=== PATIENT | female | born 1990 | race Caucasian/White ===

== ENCOUNTER 2016-11-30 13:11 | Emergency (ER) | payer OTHER, BC ==
[2016-11-30] MEDS ORDERED: KETOROLAC 30 MG/ML VIAL (J1885) As Ordered ONE (14:54)
--- NOTE | 2016-11-30 15:42 | REP ---
CT ABDOMEN: HISTORY: Right flank pain. No prior CTs for comparison. TECHNIQUE: Stone protocol without contrast utilized. The lungs bases are clear. Limited evaluation of the solid intraabdominal organs and gallbladder show no gross abnormalities. Limited evaluation of the pancreas and adrenal glands show no abnormalities. There is no nephroureterolithiasis, hydronephrosis or hydroureter. There are no urinary bladder calcifications. Limited evaluation of the abdominal aorta and paraaortic regions show no gross abnormalities. The bowel loops the mesenteries are unremarkable. There is a trace amount of free pelvic fluid which is probably physiologic. There is no free fluid in the abdomen. There is no free air in the abdomen or pelvis. There is no evidence of an intraabdominal or intrapelvic mass or adenopathy. Bone window technique throughout the examination shows the osseous structures to be within normal limits. IMPRESSION: CT findings are within normal limits. There are some calcified lymph nodes in the left groin, which are nonspecific. Signed by Felipe Fuentes DO 11/30/2016 04:40 P
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
--- NOTE | 2016-11-30 16:01 | EDDOCDS ---
Physician Documentation [facility] Name: Alix Castro Age: 26 yrs Sex: Female : 1990 Arrival Date: 11/30/2016 Time: 13:11 Bed PR Private MD: Other - Complete Info On Cds Disposition: 11/30/16 15:51 Discharged to Home/Self Care. Impression: Low back pain. - Condition is Stable. - Discharge Instructions: Flank Pain, [id number]. - Prescriptions for Diclofenac Sodium 75 mg Oral Tablet, Delayed Release (E.C.) - take 1 tablet by ORAL route 2 times per day; 30 tablet. Robaxin- 750 750 mg Oral Tablet - take 1 tablet by ORAL route every 6 hours As needed; 40 tablet. - Medication Reconciliation, Local Pharmacy Hours form. - Follow up: Orthopaedics, [facility]; When: Call to arrange an appointment; Reason: Further diagnostic work-up, Recheck today's complaints, Continuance of care. - Problem is new. - Symptoms have improved. Historical: - Allergies: no known allergies; - Home Meds: 1. control daily 2. Aleve 220 mg Oral tab 2 tab as needed (Last dose: 11/30/2016 09:00) - PMHx: Seasonal Allergies; - PSHx: nasal fx repair; plate in right ring finger; - Immunization history: Last tetanus immunization: unknown. - Social history: Smoking status: Patient states was never smoker of tobacco. No barriers to communication noted, The patient speaks fluent Stat[place], Speaks appropriately for age. - Family history: Not pertinent. - Last oral intake was: entering ED. - : The pt / caregiver states he / she is not on anticoagulants. Home medication list is obtained from the patient. - Exposure Risk Screening:: None identified. 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 9 in. (175.26 cm); Pain 4/10; 15:34 BP 107 / 53; Pulse 72; Resp 18; Temp 97.8(T); Pulse Ox 100% on R/A; Pain 1/10; jb5 13:13 Body Mass Index 19.20 (58.97 kg, 175.26 cm) sew Trauma Score (Adult): 13:27 Eye Response: spontaneous(1); Verbal Response: oriented(1); Motor Response: obeys srm commands(2); Systolic BP: > 89 mm Hg(4); Respiratory Rate: 10 to 29 per min(4); [place] Score: 15; Trauma Score: 12 MDM: 14:33 ketorolac 30 mg IM once ordered. btw 14:33 Urinalysis Ordered. EDMS 14:34 CT ABD & PELVIS: No Contrast Ordered. EDMS 14:35 UCG by Nursing ordered. ml6 14:49 Financial registration complete. pm4 15:14 Urinalysis Reviewed. btw 15:17 [facility] Payment Agreement was scanned into [employer] and attached to record. pm4 15:19 [facility] was scanned into [employer] and attached to record. pm4 Point of Care Testing: Urine : 14:59 hCG Reading: Negative; Control Reading: Positive; ld5 Ranges: Administered Medications: 14:58 Drug: ketorolac 30 mg [ketorolac 30 mg/mL (1 mL) injection solution (1 mL)] Route: IM; [facility] Site: left gluteus; Signatures: Dispatcher [employer] Lalita Chan, Lamberto Suarez RN, RN RN ml6 Ezequiel Arguelles PA PA btw Regina Ramirez RN RN ld5 Oj Mcbride, Reg Reg pm4 Barbara Colindres RN [facility] The chart was reviewed and I authenticate all verbal orders and agree with the evaluation and treatment provided.Attachments: 15:17 [facility] Payment Agreement pm4 MTDD
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
--- NOTE | 2016-12-04 09:22 | EDDOCDS ---
Physician Documentation [facility] Name: Alix Castro Age: 26 yrs Sex: Female : 1990 Arrival Date: 11/30/2016 Time: 13:11 Bed PR Private MD: Other - Complete Info On Cds Disposition: 11/30/16 15:51 Discharged to Home/Self Care. Impression: Low back pain. - Condition is Stable. - Discharge Instructions: Flank Pain, [id number]. - Prescriptions for Diclofenac Sodium 75 mg Oral Tablet, Delayed Release (E.C.) - take 1 tablet by ORAL route 2 times per day; 30 tablet. Robaxin- 750 750 mg Oral Tablet - take 1 tablet by ORAL route every 6 hours As needed; 40 tablet. - Medication Reconciliation, Local Pharmacy Hours form. - Follow up: Orthopaedics, [facility]; When: Call to arrange an appointment; Reason: Further diagnostic work-up, Recheck today's complaints, Continuance of care. - Problem is new. - Symptoms have improved. Historical: - Allergies: no known allergies; - Home Meds: 1. control daily 2. Aleve 220 mg Oral tab 2 tab as needed (Last dose: 11/30/2016 09:00) - PMHx: Seasonal Allergies; - PSHx: nasal fx repair; plate in right ring finger; - Immunization history: Last tetanus immunization: unknown. - Social history: Smoking status: Patient states was never smoker of tobacco. No barriers to communication noted, The patient speaks fluent Sao Tomean, Speaks appropriately for age. - Family history: Not pertinent. - Last oral intake was: entering ED. - : The pt / caregiver states he / she is not on anticoagulants. Home medication list is obtained from the patient. - Exposure Risk Screening:: None identified. 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 9 in. (175.26 cm); Pain 4/10; 15:34 BP 107 / 53; Pulse 72; Resp 18; Temp 97.8(T); Pulse Ox 100% on R/A; Pain 1/10; jb5 13:13 Body Mass Index 19.20 (58.97 kg, 175.26 cm) sew Trauma Score (Adult): 13:27 Eye Response: spontaneous(1); Verbal Response: oriented(1); Motor Response: obeys srm commands(2); Systolic BP: > 89 mm Hg(4); Respiratory Rate: 10 to 29 per min(4); [place] Score: 15; Trauma Score: 12 MDM: 14:33 ketorolac 30 mg IM once ordered. btw 14:33 Urinalysis Ordered. EDMS 14:34 CT ABD & PELVIS: No Contrast Ordered. EDMS 14:35 UCG by Nursing ordered. ml6 14:49 Financial registration complete. pm4 15:14 Urinalysis Reviewed. btw 15:17 [facility] Payment Agreement was scanned into [employer] and attached to record. pm4 15:19 [facility] was scanned into [employer] and attached to record. pm4 12/01 09:17 T-Sheet-- Draft Copy was scanned into [employer] and attached to record. [facility] Point of Care Testing: Urine : 11/30 14:59 hCG Reading: Negative; Control Reading: Positive; ld5 Ranges: Administered Medications: 14:58 Drug: ketorolac 30 mg [ketorolac 30 mg/mL (1 mL) injection solution (1 mL)] Route: IM; [facility] Site: left gluteus; 16:01 Follow up: Response: Pain is decreased ld5 Signatures: Dispatcher [employer] EDMS Lalita Barnard RN RN srm Lowe, Matthew, RN RN ml6 Ezequiel Arguelles PA PA btw Regina Ramirez RN RN ld5 Marsha Merritt Paul, Reg Reg pm4 Barabra Colindres RN [facility] The chart was reviewed and I authenticate all verbal orders and agree with the evaluation and treatment provided.Attachments: 15:17 [facility] Payment Agreement pm4 12/01 09:17 T-Sheet-- Draft Copy [facility] Chart Complete MTDD
--- NOTE | 2016-12-04 09:22 | EDDOCDS ---
Physician Documentation [facility] Name: Alix Castro Age: 26 yrs Sex: Female : 1990 Arrival Date: 11/30/2016 Time: 13:11 Bed PR Private MD: Other - Complete Info On Cds Disposition: 11/30/16 15:51 Discharged to Home/Self Care. Impression: Low back pain. - Condition is Stable. - Discharge Instructions: Flank Pain, [id number]. - Prescriptions for Diclofenac Sodium 75 mg Oral Tablet, Delayed Release (E.C.) - take 1 tablet by ORAL route 2 times per day; 30 tablet. Robaxin- 750 750 mg Oral Tablet - take 1 tablet by ORAL route every 6 hours As needed; 40 tablet. - Medication Reconciliation, Local Pharmacy Hours form. - Follow up: Orthopaedics, [facility]; When: Call to arrange an appointment; Reason: Further diagnostic work-up, Recheck today's complaints, Continuance of care. - Problem is new. - Symptoms have improved. Historical: - Allergies: no known allergies; - Home Meds: 1. control daily 2. Aleve 220 mg Oral tab 2 tab as needed (Last dose: 11/30/2016 09:00) - PMHx: Seasonal Allergies; - PSHx: nasal fx repair; plate in right ring finger; - Immunization history: Last tetanus immunization: unknown. - Social history: Smoking status: Patient states was never smoker of tobacco. No barriers to communication noted, The patient speaks fluent Cape Verdean, Speaks appropriately for age. - Family history: Not pertinent. - Last oral intake was: entering ED. - : The pt / caregiver states he / she is not on anticoagulants. Home medication list is obtained from the patient. - Exposure Risk Screening:: None identified. 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 9 in. (175.26 cm); Pain 4/10; 15:34 BP 107 / 53; Pulse 72; Resp 18; Temp 97.8(T); Pulse Ox 100% on R/A; Pain 1/10; jb5 13:13 Body Mass Index 19.20 (58.97 kg, 175.26 cm) sew Trauma Score (Adult): 13:27 Eye Response: spontaneous(1); Verbal Response: oriented(1); Motor Response: obeys srm commands(2); Systolic BP: > 89 mm Hg(4); Respiratory Rate: 10 to 29 per min(4); [place] Score: 15; Trauma Score: 12 MDM: 14:33 ketorolac 30 mg IM once ordered. btw 14:33 Urinalysis Ordered. EDMS 14:34 CT ABD & PELVIS: No Contrast Ordered. EDMS 14:35 UCG by Nursing ordered. ml6 14:49 Financial registration complete. pm4 15:14 Urinalysis Reviewed. btw 15:17 [place] [place] Payment Agreement was scanned into [employer] and attached to record. pm4 15:19 [facility] was scanned into [employer] and attached to record. pm4 12/01 09:17 T-Sheet-- Draft Copy was scanned into [employer] and attached to record. [facility] Point of Care Testing: Urine : 11/30 14:59 hCG Reading: Negative; Control Reading: Positive; ld5 Ranges: Administered Medications: 14:58 Drug: ketorolac 30 mg [ketorolac 30 mg/mL (1 mL) injection solution (1 mL)] Route: IM; [facility] Site: left gluteus; 16:01 Follow up: Response: Pain is decreased ld5 Signatures: Dispatcher [employer] EDMS Lalita Barnard RN RN srm Lowe, Matthew, RN RN ml6 Ezequiel Arguelles PA PA btw Regina Ramirez RN RN ld5 Marsha Merritt Paul, Reg Reg pm4 Barbara Colindres RN [facility] The chart was reviewed and I authenticate all verbal orders and agree with the evaluation and treatment provided.Attachments: 15:17 [facility] [place] Payment Agreement pm4 12/01 09:17 T-Sheet-- Draft Copy [facility] Chart Complete MTDD
== END 2016-11-30 16:01 | disposition home or self-care (01) ==
LOC: M ED 13:11
DX: R10.9 Unspecified abdominal pain (principal); J45.909 Unspecified asthma, uncomplicated; Z79.3 Long term (current) use of hormonal contraceptives
CPT/HCPCS: 74176; 81001; 81025; 96372; 99284; J1885

== ENCOUNTER 2016-12-04 14:23 | Emergency (ER) | payer OTHER, BC ==
--- NOTE | 2016-12-04 15:12 | EDDOCDS ---
Physician Documentation [facility] Name: Alix Castro Age: 26 yrs Sex: Female : 1990 Arrival Date: 12/04/2016 Time: 14:23 Bed TR7 Private MD: Unknown, Family Dr Disposition: 12/04/16 14:50 Discharged to Home/Self Care. Impression: Muscle spasm of back. - Condition is Stable. - Discharge Instructions: Back Pain, Adult, Muscle Cramps and Spasms. - Prescriptions for Ibuprofen 600 mg Oral Tablet - take 1 tablet by ORAL route every 6 hours As needed take with food; 30 tablet. - Medication Reconciliation, Local Pharmacy Hours form. - Follow up: Private Physician; When: As previously arranged; Reason: Recheck today's complaints, Continuance of care. - Problem is new. - Symptoms are unchanged. Historical: - Allergies: no known allergies; - Home Meds: 1. control daily 2. diclofenac sodium 75 mg oral TbEC 1 tab 2 times per day 3. Robaxin 750 mg Oral tab every 6 hours - PMHx: Seasonal Allergies; - PSHx: nasal fx repair; plate in right ring finger; - Social history: Smoking status: Patient states was never smoker of tobacco. No barriers to communication noted, The patient speaks fluent Japanese, Speaks appropriately for age. - Family history: Not pertinent. - : The pt / caregiver states he / she is not on anticoagulants. Home medication list is obtained from the patient. - Exposure Risk Screening:: None identified. 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 9 in. (175.26 cm) (R); 14:24 Body Mass Index 19.20 (58.97 kg, 175.26 cm) dd6 Signatures: Canelo Forrester PA-C PAFredy ar2 Cammy Andino RN RN hs1 Ivet August RN RN ms18 MTDD
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
--- NOTE | 2016-12-06 16:12 | EDDOCDS ---
Physician Documentation [facility] Name: Alix Castro Age: 26 yrs Sex: Female : 1990 Arrival Date: 12/04/2016 Time: 14:23 Bed TR7 Private MD: Unknown, Family Dr Disposition: 12/04/16 14:50 Discharged to Home/Self Care. Impression: Muscle spasm of back. - Condition is Stable. - Discharge Instructions: Back Pain, Adult, Muscle Cramps and Spasms. - Prescriptions for Ibuprofen 600 mg Oral Tablet - take 1 tablet by ORAL route every 6 hours As needed take with food; 30 tablet. - Medication Reconciliation, Local Pharmacy Hours form. - Follow up: Private Physician; When: As previously arranged; Reason: Recheck today's complaints, Continuance of care. - Problem is new. - Symptoms are unchanged. Historical: - Allergies: no known allergies; - Home Meds: 1. control daily 2. diclofenac sodium 75 mg oral TbEC 1 tab 2 times per day 3. Robaxin 750 mg Oral tab every 6 hours - PMHx: Seasonal Allergies; - PSHx: nasal fx repair; plate in right ring finger; - Social history: Smoking status: Patient states was never smoker of tobacco. No barriers to communication noted, The patient speaks fluent French, Speaks appropriately for age. - Family history: Not pertinent. - : The pt / caregiver states he / she is not on anticoagulants. Home medication list is obtained from the patient. - Exposure Risk Screening:: None identified. 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 9 in. (175.26 cm) (R); 14:24 Body Mass Index 19.20 (58.97 kg, 175.26 cm) dd6 MDM: 15:15 [facility] [place] Payment Agreement was scanned into [employer] and attached to record. mm15 15:15 Financial registration complete. mm15 12/05 10:07 T-Sheet-- Draft Copy was scanned into [employer] and attached to record. gb Signatures: Jane Mckeon, Reg Reg gb Canelo Forrester, MITCHELL PAFredy ar2 Cammy Andino, RN RN hs1 Carolyn Price mm15 Ivet August,KENYATTA RN ms18 The chart was reviewed and I authenticate all verbal orders and agree with the evaluation and treatment provided.Attachments: 12/04 15:15 [facility] [place] Payment Agreement mm15 12/05 10:07 T-Sheet-- Draft Copy gb Chart Complete MTDD
--- NOTE | 2016-12-06 16:12 | EDDOCDS ---
Physician Documentation [facility] Name: Alix Castro Age: 26 yrs Sex: Female : 1990 Arrival Date: 12/04/2016 Time: 14:23 Bed TR7 Private MD: Unknown, Family Dr Disposition: 12/04/16 14:50 Discharged to Home/Self Care. Impression: Muscle spasm of back. - Condition is Stable. - Discharge Instructions: Back Pain, Adult, Muscle Cramps and Spasms. - Prescriptions for Ibuprofen 600 mg Oral Tablet - take 1 tablet by ORAL route every 6 hours As needed take with food; 30 tablet. - Medication Reconciliation, Local Pharmacy Hours form. - Follow up: Private Physician; When: As previously arranged; Reason: Recheck today's complaints, Continuance of care. - Problem is new. - Symptoms are unchanged. Historical: - Allergies: no known allergies; - Home Meds: 1. control daily 2. diclofenac sodium 75 mg oral TbEC 1 tab 2 times per day 3. Robaxin 750 mg Oral tab every 6 hours - PMHx: Seasonal Allergies; - PSHx: nasal fx repair; plate in right ring finger; - Social history: Smoking status: Patient states was never smoker of tobacco. No barriers to communication noted, The patient speaks fluent Yi, Speaks appropriately for age. - Family history: Not pertinent. - : The pt / caregiver states he / she is not on anticoagulants. Home medication list is obtained from the patient. - Exposure Risk Screening:: None identified. 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 9 in. (175.26 cm) (R); 14:24 Body Mass Index 19.20 (58.97 kg, 175.26 cm) dd6 MDM: 15:15 [facility] Payment Agreement was scanned into [employer]book and attached to record. mm15 15:15 Financial registration complete. mm15 12/05 10:07 T-Sheet-- Draft Copy was scanned into Corebook and attached to record. gb Signatures: Jane Mckeon, Reg Reg gb Canelo Forrester, MITCHELL PAFredy ar2 Cammy Andino, RN RN hs1 Carolyn Price mm15 Ivet August,KENYATTA RN [id number] The chart was reviewed and I authenticate all verbal orders and agree with the evaluation and treatment provided.Attachments: 12/04 15:15 [facility] Payment Agreement mm15 12/05 10:07 T-Sheet-- Draft Copy gb Chart Complete MTDD
== END 2016-12-04 15:11 | disposition home or self-care (01) ==
LOC: M ED 14:23
DX: M62.830 Muscle spasm of back (principal); J30.9 Allergic rhinitis, unspecified; Z79.3 Long term (current) use of hormonal contraceptives; Z79.899 Other long term (current) drug therapy